=== PATIENT | male | born 1965 | race Caucasian/White ===

== ENCOUNTER 2019-01-23 09:58 | Emergency (ER) | payer OTHER ==
[~2019-01-23] VITALS: Ht 177.8 cm; Wt 136.1 kg
[~2019-01-23 09:58] MED LIST: ASPIRIN EC325 M1 PO; CINNAMON BARK1 GM; GARLIC OIL1 EACH PO; MULTIVITAMINS1 EAC7 PO; OMEGA-31000 M1 PO; QUINIDINE GLUC324 MG PO
[2019-01-23] MEDS ORDERED: VITAMIN B COMP1 EACH PO (10:15)
[2019-01-23] MEDS ORDERED: TART CHERRY CA1 EACH PO (10:15)
[2019-01-23] MEDS ORDERED: LOPRESSOR25 PO (10:15)
[2019-01-23 11:09] LABS: ABSOLUTE BASOPHILS 0.1 thou/uL (0.0-0.2); ABSOLUTE EOSINOPHILS 0.3 thou/uL (0.0-0.7); ABSOLUTE LYMPHOCYTES 2.1 thou/uL (0.8-5.3); ABSOLUTE MONOCYTES 0.6 thou/uL (0.0-1.2); ABSOLUTE NEUTROPHILS 4.3 thou/uL (1.6-8.1); BASOPHILS 1.2 %; EOSINOPHILS 3.9 %; HEMATOCRIT 49.2 % (42.0-52.0); HEMOGLOBIN 17.1 gm/dL (14.0-18.0); LYMPHOCYTES 28.6 %; MCH 31.8 pg (26.0-34.0); MCHC 34.7 g/dL (28.0-37.0); MCV 91.7 fL (80.0-100.0); MONOCYTES 8.7 %; MPV 8.5 fl. (7.2-11.1); NUCLEATED RBCS 0 /100WBC; PLATELET COUNT* 229 thou/uL (150-400); POLYS 57.6 %; RBC 5.36 mil/uL (4.50-6.00); RDW-CV 13.3 % (10.5-14.5); WBC 7.4 thou/uL (4.0-11.0)
[2019-01-23 11:24] LABS: ALBUMIN 3.8 g/dL (3.4-5.0); CALCIUM 9.3 mg/dL (8.5-10.1); CREATININE 1.2 mg/dL (0.6-1.3); POTASSIUM 4.3 mmol/L (3.5-5.1); TOTAL BILIRUBIN 0.3 mg/dL (<0.1-1.0); URIC ACID* 8.2 mg/dL (2.6-7.2)
[2019-01-23 11:36] LABS: INR 1.1; PROTIME 11.5 Seconds (9.20-11.50)
[2019-01-23] MEDS ORDERED: KEFLEX500 M1 PO (12:16)
[2019-01-23] MEDS ORDERED: FLEXERIL PO (12:16)
[2019-01-23] MEDS ORDERED: ALLOPURINOL 10100 M1 PO (12:16)
[2019-01-23 12:30] VITALS: BP 109/73
== END 2019-01-23 12:30 | disposition home or self-care (01) ==
LOC: M.ERS 09:58
PROVIDERS: Nurse Practitioner Family
DX: L03.116 Cellulitis of left lower limb (principal); E79.0 Hyperuricemia without signs of inflammatory arthritis and tophaceous disease; I10 Essential (primary) hypertension; Z90.89 Acquired absence of other organs; Z86.718 Personal history of other venous thrombosis and embolism